=== PATIENT | male | born 1950 | race Caucasian/White ===

== ENCOUNTER 2018-02-05 17:14 | Inpatient (IN) | payer MEDICARE, OTHER ==
[~2018-02-05] VITALS: Ht 172.7 cm; Wt 70.3 kg
[2018-02-05] MEDS ORDERED: ACETAMINOPHEN 325 MG TABLET PO PRN (23:15)
[2018-02-05] MEDS ORDERED: DOCUSATE SODIUM 283 MG/5 ML MINI-ENEMA PR PRN (23:15)
[2018-02-05 23:30] VITALS: BP 140/78
[2018-02-06] MEDS ORDERED: ENOXAPARIN SODIUM 80 MG/0.8 ML PF SYRINGE SQ ONE
[2018-02-06] MEDS ORDERED: *CLINICAL-WARFARIN SODIUM DOSING CLINICAL ONE
[2018-02-06 01:12] LABS: APPEARANCE,URINE CLEAR (CLEAR); BILIRUBIN,URINE NEGATIVE (NEGATIVE); GLUCOSE, URINE (UA) NEGATIVE (NEGATIVE); KETONES,URINE NEGATIVE (NEGATIVE); LEUKOCYTE ESTERASE ,URINE NEGATIVE (NEGATIVE); NITRATE,URINE NEGATIVE (NEGATIVE); OCCULT BLOOD,URINE NEGATIVE (NEGATIVE); PH,URINE 5.5 (5.0-8.0); PROTEIN,URINE NEGATIVE (NEGATIVE); UROBILINOGEN,URINE 0.2 mg/dL (<=1.0)
[2018-02-06] MEDS ORDERED: SPIR25 PO (03:11)
[2018-02-06] MEDS ORDERED: LISI-661 PO (03:11)
[2018-02-06] MEDS ORDERED: ASPI81 PO (03:11)
[2018-02-06] MEDS ORDERED: CARV6 PO (03:11)
[2018-02-06] MEDS ORDERED: ATOR10TA84 PO (03:11)
[2018-02-06 06:48] LABS: BASOPHILS % (AUTO) 0.7 % (0.0-2.0); EOSINOPHILS % (AUTO) 15.6 % (1.0-6.0); HEMATOCRIT 35.4 % (41-53); HEMOGLOBIN 12.3 g/dL (13.5-17.5); LYMPHOCYTES # (AUTO) 1.4 K/uL (1.0-4.8); LYMPHOCYTES % (AUTO) 18.2 % (22.0-44.0); MEAN CORPUSCULAR HEMOGLOBIN 31.5 pg (26.0-34.0); MEAN CORPUSCULAR HGB CONC 34.7 G/dL (31.0-37.0); MEAN CORPUSCULAR VOLUME 91 fL (80-100); MONOCYTES # (AUTO) 0.5 K/uL (0.1-1.0); MONOCYTES % (AUTO) 6.6 % (2.0-9.0); NEUTROPHILS # (AUTO) 4.5 K/uL (1.8-7.7); NEUTROPHILS % (AUTO) 58.9 % (40.0-70.0); PLATELET COUNT (AUTO) 218 K/uL (150-450); RED BLOOD CELL COUNT(AUTO) 3.89 MIL/uL (4.50-5.90); RED CELL DISTRIBUTION WIDTH 14.1 % (11.5-14.5)
[2018-02-06 07:01] LABS: BILIRUBIN,TOTAL 0.4 mg/dL (0.1-1.0); CALCIUM, TOTAL 8.9 mg/dL (8.8-10.5); CREATININE 1.22 mg/dL (0.60-1.30); POTASSIUM 3.6 mmol/L (3.5-5.1); TOTAL PROTEIN, SERUM 6.7 g/dL (6.4-8.2)
[2018-02-06 07:05] VITALS: BP 122/72
[2018-02-06] MEDS: ENOXAPARIN SODIUM 80 MG/0.8 ML PF SYRINGE SQ SCH ×2 (08:49→20:56)
[2018-02-06] MEDS: PANTOPRAZOLE SODIUM 40 MG DR TABLET PO SCH (08:49)
[2018-02-06] MEDS: CARVEDILOL 12.5 MG TABLET PO SCH ×2 (08:49→17:43)
[2018-02-06] MEDS: ATORVASTATIN CALCIUM 40 MG TABLET PO SCH (08:49)
[2018-02-06] MEDS: LISINOPRIL 10 MG TABLET PO SCH (08:49)
[2018-02-06] MEDS: ASPIRIN 81 MG CHEWABLE TABLET PO SCH (08:49)
[2018-02-06 15:00] VITALS: BP 100/60
[2018-02-06] MEDS ORDERED: WARFARIN SODIUM 5 MG TABLET PO SCH (17:00)
[2018-02-06 17:43] VITALS: BP 115/68
[2018-02-06] MEDS: WARFARIN SODIUM 5 MG TABLET PO SCH (17:43)
[2018-02-06] MEDS: DOCUSATE SODIUM 100 MG CAPSULE PO SCH (20:56)
[2018-02-06] MEDS: SENNA 187 MG TABLET PO SCH (20:56)
[2018-02-07] VITALS (7 sets, daily range): BP systolic 100–150; BP diastolic 56–76
[2018-02-07] MEDS: MAGNESIUM HYDROXIDE SUSPENSION 30 ML UDCUP PO PRN ×2 (06:41→21:10)
[2018-02-07 08:54] LABS: PROTHROMBIN TIME 10.6 SEC (9.4-11.6)
[2018-02-07] MEDS: LISINOPRIL 10 MG TABLET PO SCH (09:00)
[2018-02-07] MEDS: PANTOPRAZOLE SODIUM 40 MG DR TABLET PO SCH (09:12)
[2018-02-07] MEDS: ATORVASTATIN CALCIUM 40 MG TABLET PO SCH (09:12)
[2018-02-07] MEDS: CARVEDILOL 12.5 MG TABLET PO SCH ×2 (09:12→16:58)
[2018-02-07] MEDS: DOCUSATE SODIUM 100 MG CAPSULE PO SCH (09:12)
[2018-02-07] MEDS: ASPIRIN 81 MG CHEWABLE TABLET PO SCH (09:12)
[2018-02-07] MEDS: ENOXAPARIN SODIUM 80 MG/0.8 ML PF SYRINGE SQ SCH ×2 (09:35→20:37)
[2018-02-07] MEDS ORDERED: MAGNESIUM CITRATE 300 ML ORAL SOLUTION PO ONE (16:00)
[2018-02-07] MEDS: WARFARIN SODIUM 5 MG TABLET PO SCH (16:58)
[2018-02-07] MEDS: DOCUSATE SODIUM 250 MG CAPSULE PO SCH (20:35)
[2018-02-07] MEDS: SENNA 187 MG TABLET PO SCH (20:35)
[2018-02-08 03:46] VITALS: BP 106/57
[2018-02-08 07:12] VITALS: BP 129/72
[2018-02-08 07:37] LABS: INR 1.2 (0.9-1.1); PROTHROMBIN TIME 12.3 SEC (9.4-11.6)
[2018-02-08] MEDS: LISINOPRIL 10 MG TABLET PO SCH (08:53)
[2018-02-08] MEDS: PANTOPRAZOLE SODIUM 40 MG DR TABLET PO SCH (08:53)
[2018-02-08] MEDS: ATORVASTATIN CALCIUM 40 MG TABLET PO SCH (08:53)
[2018-02-08] MEDS: CARVEDILOL 12.5 MG TABLET PO SCH ×2 (08:53→17:28)
[2018-02-08] MEDS: ASPIRIN 81 MG CHEWABLE TABLET PO SCH (08:53)
[2018-02-08] MEDS: POLYETHYLENE GLYCOL 3350 17 GM PACKET PO SCH (09:00)
[2018-02-08] MEDS: DOCUSATE SODIUM 250 MG CAPSULE PO SCH ×2 (09:00→20:19)
[2018-02-08] MEDS: ENOXAPARIN SODIUM 80 MG/0.8 ML PF SYRINGE SQ SCH ×2 (10:00→20:20)
[2018-02-08] MEDS ORDERED: WARFARIN SODIUM 3 MG TABLET PO ONE (17:00)
[2018-02-08 17:31] LABS: BASOPHILS % (AUTO) 1.2 % (0.0-2.0); EOSINOPHILS % (AUTO) 16.2 % (1.0-6.0); HEMATOCRIT 38.7 % (41-53); LYMPHOCYTES # (AUTO) 1.5 K/uL (1.0-4.8); MEAN CORPUSCULAR HEMOGLOBIN 31.2 pg (26.0-34.0); MEAN CORPUSCULAR HGB CONC 33.6 G/dL (31.0-37.0); MEAN CORPUSCULAR VOLUME 93 fL (80-100); MONOCYTES # (AUTO) 0.4 K/uL (0.1-1.0); MONOCYTES % (AUTO) 5.8 % (2.0-9.0); NEUTROPHILS # (AUTO) 4.2 K/uL (1.8-7.7); NEUTROPHILS % (AUTO) 56.8 % (40.0-70.0); PLATELET COUNT (AUTO) 284 K/uL (150-450); RED BLOOD CELL COUNT(AUTO) 4.17 MIL/uL (4.50-5.90); RED CELL DISTRIBUTION WIDTH 13.5 % (11.5-14.5)
[2018-02-08 17:46] LABS: PLATELET MORPHOLOGY COMMENT GIANT PLTS PRESENT
[2018-02-08 17:50] VITALS: BP 112/61
[2018-02-08 19:05] LABS: APPEARANCE,URINE CLOUDY (CLEAR); BILIRUBIN,URINE NEGATIVE (NEGATIVE); GLUCOSE, URINE (UA) NEGATIVE (NEGATIVE); KETONES,URINE TRACE mg/dL (NEGATIVE); LEUKOCYTE ESTERASE ,URINE SMALL (NEGATIVE); NITRATE,URINE NEGATIVE (NEGATIVE); OCCULT BLOOD,URINE LARGE (NEGATIVE); PROTEIN,URINE SEE CONFIRM (NEGATIVE); UROBILINOGEN,URINE 0.2 mg/dL (<=1.0)
[2018-02-08 19:15] LABS: BACTERIA,URINE Rare /HPF (None Seen); RBC,URINE 51-100 /HPF (0-2); SQUAMOUS EPITHELIAL CELL,UR Few /LPF (None Seen); SULFOSALICYLIC ACID,URINE 3+ (Negative)
[2018-02-08] MEDS: SENNA 187 MG TABLET PO SCH (20:19)
[2018-02-09] VITALS: BP 97/53
[2018-02-09 06:39] LABS: INR 1.2 (0.9-1.1); PROTHROMBIN TIME 12.4 SEC (9.4-11.6)
[2018-02-09 06:44] VITALS: BP 96/60
[2018-02-09 07:20] VITALS: BP 106/68
[2018-02-09] MEDS ORDERED: WARFARIN SODIUM-INR 2.0-3.0-RX DOSING PER PROTOCOL PO PRN (08:30)
[2018-02-09] MEDS: *CLINICAL-WARFARIN SODIUM DOSING CLINICAL SCH (09:00)
[2018-02-09] MEDS ORDERED: ENOXAPARIN SODIUM 80 MG/0.8 ML PF SYRINGE SQ SCH (09:00)
[2018-02-09] MEDS: DOCUSATE SODIUM 250 MG CAPSULE PO SCH ×2 (09:05→20:36)
[2018-02-09] MEDS: POLYETHYLENE GLYCOL 3350 17 GM PACKET PO SCH (09:05)
[2018-02-09] MEDS: PANTOPRAZOLE SODIUM 40 MG DR TABLET PO SCH (09:06)
[2018-02-09] MEDS: ATORVASTATIN CALCIUM 40 MG TABLET PO SCH (09:06)
[2018-02-09] MEDS: ENOXAPARIN SODIUM 80 MG/0.8 ML PF SYRINGE SQ SCH ×2 (09:06→20:36)
[2018-02-09] MEDS: CARVEDILOL 12.5 MG TABLET PO SCH ×2 (09:06→17:19)
[2018-02-09] MEDS: LISINOPRIL 10 MG TABLET PO SCH (09:07)
[2018-02-09 15:09] VITALS: BP 121/70
[2018-02-09] MEDS ORDERED: WARFARIN SODIUM 5 MG TABLET PO SCH (17:00)
[2018-02-09 17:14] VITALS: BP 103/67
[2018-02-09] MEDS: SENNA 187 MG TABLET PO SCH (20:36)
[2018-02-10] VITALS: BP 113/64
[2018-02-10 06:44] LABS: EOSINOPHILS % (AUTO) 14.7 % (1.0-6.0); HEMATOCRIT 35.5 % (41-53); HEMOGLOBIN 12.3 g/dL (13.5-17.5); LYMPHOCYTES # (AUTO) 1.2 K/uL (1.0-4.8); LYMPHOCYTES % (AUTO) 19.4 % (22.0-44.0); MEAN CORPUSCULAR HEMOGLOBIN 31.9 pg (26.0-34.0); MEAN CORPUSCULAR HGB CONC 34.7 G/dL (31.0-37.0); MEAN CORPUSCULAR VOLUME 92 fL (80-100); MONOCYTES # (AUTO) 0.4 K/uL (0.1-1.0); MONOCYTES % (AUTO) 5.8 % (2.0-9.0); NEUTROPHILS # (AUTO) 3.8 K/uL (1.8-7.7); NEUTROPHILS % (AUTO) 59.1 % (40.0-70.0); PLATELET COUNT (AUTO) 261 K/uL (150-450); RED BLOOD CELL COUNT(AUTO) 3.85 MIL/uL (4.50-5.90); RED CELL DISTRIBUTION WIDTH 13.9 % (11.5-14.5)
[2018-02-10 06:53] LABS: INR 1.2 (0.9-1.1); PROTHROMBIN TIME 12.7 SEC (9.4-11.6)
[2018-02-10] MEDS: DOCUSATE SODIUM 250 MG CAPSULE PO SCH ×2 (07:58→20:16)
[2018-02-10] MEDS: ATORVASTATIN CALCIUM 40 MG TABLET PO SCH (07:58)
[2018-02-10] MEDS: POLYETHYLENE GLYCOL 3350 17 GM PACKET PO SCH (07:58)
[2018-02-10] MEDS: PANTOPRAZOLE SODIUM 40 MG DR TABLET PO SCH (07:58)
[2018-02-10] MEDS: CARVEDILOL 12.5 MG TABLET PO SCH ×2 (07:58→17:12)
[2018-02-10] MEDS: ENOXAPARIN SODIUM 80 MG/0.8 ML PF SYRINGE SQ SCH ×2 (07:59→20:17)
[2018-02-10] MEDS: LISINOPRIL 10 MG TABLET PO SCH (07:59)
[2018-02-10 08:50] VITALS: BP 101/65
[2018-02-10] MEDS: *CLINICAL-WARFARIN SODIUM DOSING CLINICAL SCH (09:00)
[2018-02-10 15:34] VITALS: BP 109/66
[2018-02-10 15:40] LABS: CALCIUM, TOTAL 8.7 mg/dL (8.8-10.5); CREATININE 1.38 mg/dL (0.60-1.30); POTASSIUM 4.9 mmol/L (3.5-5.1)
[2018-02-10] MEDS ORDERED: SODIUM CHLORIDE 0.9% 100 ML ONE (16:55)
[2018-02-10] MEDS ORDERED: IOVERSOL 350 MG/ML 100 ML VIAL ONE (16:55)
[2018-02-10] MEDS ORDERED: WARFARIN SODIUM 2 MG TABLET PO ONE (17:00)
[2018-02-10] MEDS: SENNA 187 MG TABLET PO SCH (20:16)
[2018-02-11 00:02] VITALS: BP 97/57
[2018-02-11 06:59] LABS: INR 1.4 (0.9-1.1)
[2018-02-11 07:01] LABS: BASOPHILS % (AUTO) 1.1 % (0.0-2.0); EOSINOPHILS % (AUTO) 13.6 % (1.0-6.0); HEMATOCRIT 35.5 % (41-53); HEMOGLOBIN 12.3 g/dL (13.5-17.5); LYMPHOCYTES # (AUTO) 1.3 K/uL (1.0-4.8); LYMPHOCYTES % (AUTO) 17.3 % (22.0-44.0); MEAN CORPUSCULAR HEMOGLOBIN 31.5 pg (26.0-34.0); MEAN CORPUSCULAR HGB CONC 34.7 G/dL (31.0-37.0); MEAN CORPUSCULAR VOLUME 91 fL (80-100); MONOCYTES # (AUTO) 0.4 K/uL (0.1-1.0); MONOCYTES % (AUTO) 4.9 % (2.0-9.0); NEUTROPHILS # (AUTO) 4.6 K/uL (1.8-7.7); NEUTROPHILS % (AUTO) 63.1 % (40.0-70.0); PLATELET COUNT (AUTO) 278 K/uL (150-450); RED BLOOD CELL COUNT(AUTO) 3.91 MIL/uL (4.50-5.90); RED CELL DISTRIBUTION WIDTH 13.8 % (11.5-14.5)
[2018-02-11 07:08] LABS: ALBUMIN 3.1 g/dL (3.4-5.0); BILIRUBIN,TOTAL 0.2 mg/dL (0.1-1.0); CALCIUM, TOTAL 8.5 mg/dL (8.8-10.5); CREATININE 1.36 mg/dL (0.60-1.30); MAGNESIUM 2.5 mg/dL (1.80-2.40); POTASSIUM 4.6 mmol/L (3.5-5.1); TOTAL PROTEIN, SERUM 6.8 g/dL (6.4-8.2)
[2018-02-11 07:30] VITALS: BP 96/65
[2018-02-11] MEDS: CARVEDILOL 12.5 MG TABLET PO SCH ×2 (07:30→16:18)
[2018-02-11] MEDS: DOCUSATE SODIUM 250 MG CAPSULE PO SCH ×2 (08:35→20:20)
[2018-02-11] MEDS: ATORVASTATIN CALCIUM 40 MG TABLET PO SCH (08:35)
[2018-02-11] MEDS: POLYETHYLENE GLYCOL 3350 17 GM PACKET PO SCH (08:35)
[2018-02-11] MEDS: ENOXAPARIN SODIUM 80 MG/0.8 ML PF SYRINGE SQ SCH ×2 (08:36→20:20)
[2018-02-11] MEDS: PANTOPRAZOLE SODIUM 40 MG DR TABLET PO SCH (08:36)
[2018-02-11] MEDS: LISINOPRIL 10 MG TABLET PO SCH (08:37)
[2018-02-11 15:50] VITALS: BP 107/66
[2018-02-11] MEDS: 0.9% SODIUM CHLORIDE 10 ML SYRINGE IVP SCH (16:17)
[2018-02-11] MEDS ORDERED: WARFARIN SODIUM 7.5 MG TABLET PO ONE (17:00)
[2018-02-11] MEDS: MAGNESIUM HYDROXIDE SUSPENSION 30 ML UDCUP PO PRN (20:20)
[2018-02-11] MEDS: SENNA 187 MG TABLET PO SCH (20:20)
[2018-02-12] MEDS: 0.9% SODIUM CHLORIDE 10 ML SYRINGE IVP SCH ×3 (00:08→16:46)
[2018-02-12 00:23] VITALS: BP 100/58
[2018-02-12 06:17] LABS: EOSINOPHILS % (AUTO) 13.2 % (1.0-6.0); HEMATOCRIT 35.9 % (41-53); HEMOGLOBIN 12.3 g/dL (13.5-17.5); LYMPHOCYTES # (AUTO) 1.2 K/uL (1.0-4.8); LYMPHOCYTES % (AUTO) 15.9 % (22.0-44.0); MEAN CORPUSCULAR HEMOGLOBIN 31.4 pg (26.0-34.0); MEAN CORPUSCULAR HGB CONC 34.3 G/dL (31.0-37.0); MEAN CORPUSCULAR VOLUME 92 fL (80-100); MONOCYTES # (AUTO) 0.6 K/uL (0.1-1.0); MONOCYTES % (AUTO) 7.2 % (2.0-9.0); NEUTROPHILS # (AUTO) 4.9 K/uL (1.8-7.7); NEUTROPHILS % (AUTO) 62.7 % (40.0-70.0); PLATELET COUNT (AUTO) 298 K/uL (150-450); RED BLOOD CELL COUNT(AUTO) 3.92 MIL/uL (4.50-5.90); RED CELL DISTRIBUTION WIDTH 13.7 % (11.5-14.5)
[2018-02-12 06:33] LABS: INR 1.8 (0.9-1.1); PROTHROMBIN TIME 18.4 SEC (9.4-11.6)
[2018-02-12 06:37] LABS: ALBUMIN 3.2 g/dL (3.4-5.0); BILIRUBIN,TOTAL 0.2 mg/dL (0.1-1.0); CALCIUM, TOTAL 8.7 mg/dL (8.8-10.5); CREATININE 1.5 mg/dL (0.60-1.30); MAGNESIUM 2.8 mg/dL (1.80-2.40); POTASSIUM 4.3 mmol/L (3.5-5.1)
[2018-02-12 07:36] VITALS: BP 107/61
[2018-02-12] MEDS: LISINOPRIL 10 MG TABLET PO SCH (09:00)
[2018-02-12] MEDS: ATORVASTATIN CALCIUM 40 MG TABLET PO SCH (09:06)
[2018-02-12] MEDS: DOCUSATE SODIUM 250 MG CAPSULE PO SCH ×2 (09:06→20:33)
[2018-02-12] MEDS: PANTOPRAZOLE SODIUM 40 MG DR TABLET PO SCH (09:06)
[2018-02-12] MEDS: CARVEDILOL 12.5 MG TABLET PO SCH ×2 (09:06→17:48)
[2018-02-12] MEDS: POLYETHYLENE GLYCOL 3350 17 GM PACKET PO SCH (09:07)
[2018-02-12 15:37] VITALS: BP 112/70
[2018-02-12 17:21] VITALS: BP 100/64
[2018-02-12 17:45] VITALS: BP 114/71
[2018-02-12] MEDS: WARFARIN SODIUM 3 MG TABLET PO SCH (17:48)
[2018-02-12] MEDS: SENNA 187 MG TABLET PO SCH (20:33)
[2018-02-13] MEDS: 0.9% SODIUM CHLORIDE 10 ML SYRINGE IVP SCH ×3 (02:09→16:00)
[2018-02-13 02:24] VITALS: BP 106/60
[2018-02-13 06:45] LABS: BASOPHILS % (AUTO) 0.8 % (0.0-2.0); EOSINOPHILS % (AUTO) 12.6 % (1.0-6.0); HEMATOCRIT 34.1 % (41-53); HEMOGLOBIN 11.6 g/dL (13.5-17.5); LYMPHOCYTES # (AUTO) 1.2 K/uL (1.0-4.8); LYMPHOCYTES % (AUTO) 16.9 % (22.0-44.0); MEAN CORPUSCULAR HEMOGLOBIN 31.2 pg (26.0-34.0); MEAN CORPUSCULAR VOLUME 92 fL (80-100); MONOCYTES # (AUTO) 0.5 K/uL (0.1-1.0); MONOCYTES % (AUTO) 6.6 % (2.0-9.0); NEUTROPHILS # (AUTO) 4.5 K/uL (1.8-7.7); NEUTROPHILS % (AUTO) 63.1 % (40.0-70.0); PLATELET COUNT (AUTO) 295 K/uL (150-450); RED BLOOD CELL COUNT(AUTO) 3.73 MIL/uL (4.50-5.90); RED CELL DISTRIBUTION WIDTH 13.8 % (11.5-14.5)
[2018-02-13 06:54] LABS: INR 1.9 (0.9-1.1); PROTHROMBIN TIME 19.3 SEC (9.4-11.6)
[2018-02-13 06:58] LABS: ALBUMIN 3.2 g/dL (3.4-5.0); BILIRUBIN,TOTAL 0.2 mg/dL (0.1-1.0); CALCIUM, TOTAL 8.4 mg/dL (8.8-10.5); CREATININE 1.37 mg/dL (0.60-1.30); MAGNESIUM 2.5 mg/dL (1.80-2.40); POTASSIUM 4.4 mmol/L (3.5-5.1); TOTAL PROTEIN, SERUM 6.8 g/dL (6.4-8.2)
[2018-02-13 07:30] VITALS: BP 99/58
[2018-02-13] MEDS: CARVEDILOL 12.5 MG TABLET PO SCH ×2 (07:30→16:37)
[2018-02-13] MEDS: ATORVASTATIN CALCIUM 40 MG TABLET PO SCH (08:17)
[2018-02-13] MEDS: DOCUSATE SODIUM 250 MG CAPSULE PO SCH ×2 (08:17→20:38)
[2018-02-13] MEDS: PANTOPRAZOLE SODIUM 40 MG DR TABLET PO SCH (08:17)
[2018-02-13] MEDS: LISINOPRIL 10 MG TABLET PO SCH (08:21)
[2018-02-13] MEDS: POLYETHYLENE GLYCOL 3350 17 GM PACKET PO SCH (08:23)
[2018-02-13 15:45] VITALS: BP 97/60
[2018-02-13 16:28] VITALS: BP 104/71
[2018-02-13] MEDS: WARFARIN SODIUM 3 MG TABLET PO SCH (16:39)
[2018-02-13 20:35] VITALS: BP 102/59
[2018-02-13] MEDS: SENNA 187 MG TABLET PO SCH (20:38)
[2018-02-13 23:16] VITALS: BP 111/66
[2018-02-14 06:55] LABS: INR 2.2 (0.9-1.1); PROTHROMBIN TIME 22.5 SEC (9.4-11.6)
[2018-02-14] MEDS: MAGNESIUM HYDROXIDE SUSPENSION 30 ML UDCUP PO PRN (07:06)
[2018-02-14 07:20] VITALS: BP 108/70
[2018-02-14] MEDS: CARVEDILOL 12.5 MG TABLET PO SCH ×2 (08:17→17:05)
[2018-02-14] MEDS: ATORVASTATIN CALCIUM 40 MG TABLET PO SCH (08:17)
[2018-02-14] MEDS: PANTOPRAZOLE SODIUM 40 MG DR TABLET PO SCH (08:17)
[2018-02-14] MEDS: LISINOPRIL 10 MG TABLET PO SCH (08:18)
[2018-02-14] MEDS: DOCUSATE SODIUM 250 MG CAPSULE PO SCH ×2 (08:18→20:09)
[2018-02-14] MEDS: POLYETHYLENE GLYCOL 3350 17 GM PACKET PO SCH (08:18)
[2018-02-14 16:26] VITALS: BP 165/56
[2018-02-14 17:03] VITALS: BP 115/52
[2018-02-14] MEDS: WARFARIN SODIUM 3 MG TABLET PO SCH (17:05)
[2018-02-14] MEDS: SENNA 187 MG TABLET PO SCH (20:09)
[2018-02-15 00:13] VITALS: BP 119/67
[2018-02-15 07:26] VITALS: BP 103/67
[2018-02-15 07:43] LABS: INR 2.3 (0.9-1.1); PROTHROMBIN TIME 23.7 SEC (9.4-11.6)
[2018-02-15] MEDS: CARVEDILOL 12.5 MG TABLET PO SCH ×2 (08:09→17:00)
[2018-02-15] MEDS: DOCUSATE SODIUM 250 MG CAPSULE PO SCH ×2 (08:09→20:18)
[2018-02-15] MEDS: PANTOPRAZOLE SODIUM 40 MG DR TABLET PO SCH (08:09)
[2018-02-15] MEDS: ATORVASTATIN CALCIUM 40 MG TABLET PO SCH (08:09)
[2018-02-15] MEDS: LISINOPRIL 10 MG TABLET PO SCH (08:10)
[2018-02-15] MEDS: POLYETHYLENE GLYCOL 3350 17 GM PACKET PO SCH (08:10)
[2018-02-15 16:23] VITALS: BP 103/64
[2018-02-15 17:01] VITALS: BP 98/55
[2018-02-15] MEDS: WARFARIN SODIUM 3 MG TABLET PO SCH (17:04)
[2018-02-15] MEDS: SENNA 187 MG TABLET PO SCH (20:18)
[2018-02-15 20:20] VITALS: BP 97/59
[2018-02-16 02:25] VITALS: BP 98/61
[2018-02-16 06:14] LABS: INR 2.6 (0.9-1.1); PROTHROMBIN TIME 26.1 SEC (9.4-11.6)
[2018-02-16 07:15] VITALS: BP 130/65
[2018-02-16] MEDS: DOCUSATE SODIUM 250 MG CAPSULE PO SCH ×2 (08:10→21:26)
[2018-02-16] MEDS: ATORVASTATIN CALCIUM 40 MG TABLET PO SCH (08:10)
[2018-02-16] MEDS: PANTOPRAZOLE SODIUM 40 MG DR TABLET PO SCH (08:11)
[2018-02-16] MEDS: POLYETHYLENE GLYCOL 3350 17 GM PACKET PO SCH ×2 (08:11→21:00)
[2018-02-16] MEDS: LISINOPRIL 10 MG TABLET PO SCH (08:11)
[2018-02-16] MEDS: CARVEDILOL 12.5 MG TABLET PO SCH ×2 (08:11→17:00)
[2018-02-16 15:00] VITALS: BP 81/53
[2018-02-16 15:30] VITALS: BP 106/59
[2018-02-16] MEDS: WARFARIN SODIUM 3 MG TABLET PO SCH (17:00)
[2018-02-16 17:49] VITALS: BP 113/69
[2018-02-16 18:00] VITALS: BP 98/65
[2018-02-16] MEDS ORDERED: SENNA 187 MG TABLET PO SCH (21:00)
[2018-02-17 03:37] VITALS: BP 100/63
[2018-02-17 06:59] LABS: BASOPHILS % (AUTO) 0.8 % (0.0-2.0); EOSINOPHILS % (AUTO) 11.8 % (1.0-6.0); HEMATOCRIT 37.1 % (41-53); HEMOGLOBIN 12.7 g/dL (13.5-17.5); LYMPHOCYTES # (AUTO) 1.2 K/uL (1.0-4.8); LYMPHOCYTES % (AUTO) 13.9 % (22.0-44.0); MEAN CORPUSCULAR HEMOGLOBIN 31.7 pg (26.0-34.0); MEAN CORPUSCULAR HGB CONC 34.1 G/dL (31.0-37.0); MEAN CORPUSCULAR VOLUME 93 fL (80-100); MONOCYTES # (AUTO) 0.4 K/uL (0.1-1.0); MONOCYTES % (AUTO) 4.7 % (2.0-9.0); NEUTROPHILS # (AUTO) 5.8 K/uL (1.8-7.7); NEUTROPHILS % (AUTO) 68.8 % (40.0-70.0); PLATELET COUNT (AUTO) 335 K/uL (150-450); RED CELL DISTRIBUTION WIDTH 13.6 % (11.5-14.5)
[2018-02-17 07:17] LABS: ALBUMIN 3.4 g/dL (3.4-5.0); BILIRUBIN,TOTAL 0.3 mg/dL (0.1-1.0); CALCIUM, TOTAL 8.8 mg/dL (8.8-10.5); CREATININE 1.51 mg/dL (0.60-1.30); MAGNESIUM 2.5 mg/dL (1.80-2.40); POTASSIUM 4.5 mmol/L (3.5-5.1); TOTAL PROTEIN, SERUM 7.3 g/dL (6.4-8.2)
[2018-02-17 07:30] VITALS: BP 90/62
[2018-02-17 09:13] VITALS: BP 108/75
[2018-02-17] MEDS: POLYETHYLENE GLYCOL 3350 17 GM PACKET PO SCH ×2 (09:14→20:13)
[2018-02-17] MEDS: PANTOPRAZOLE SODIUM 40 MG DR TABLET PO SCH (09:15)
[2018-02-17] MEDS: DOCUSATE SODIUM 250 MG CAPSULE PO SCH ×2 (09:15→20:13)
[2018-02-17] MEDS: ATORVASTATIN CALCIUM 40 MG TABLET PO SCH (09:15)
[2018-02-17] MEDS: LISINOPRIL 5 MG TABLET PO SCH (09:17)
[2018-02-17] MEDS ORDERED: SODIUM CHLORIDE 0.9% 1,000 ML IV ONE ×2 (12:22→13:30)
[2018-02-17 13:10] VITALS: BP 113/60
[2018-02-17] MEDS ORDERED: WATER FOR IRRIGATION,STERILE 3,000 ML IRRIG ONE (14:14)
[2018-02-17 16:47] VITALS: BP 121/67
[2018-02-17] MEDS: CARVEDILOL 6.25 MG TABLET PO SCH (17:00)
[2018-02-17] MEDS: 0.9% SODIUM CHLORIDE 10 ML SYRINGE IVP SCH (17:08)
[2018-02-17 17:21] VITALS: BP 93/51
[2018-02-17] MEDS: WARFARIN SODIUM 3 MG TABLET PO SCH (17:22)
[2018-02-18] MEDS: 0.9% SODIUM CHLORIDE 10 ML SYRINGE IVP SCH ×3 (00:23→16:39)
[2018-02-18 02:00] VITALS: BP 102/56
[2018-02-18] MEDS ORDERED: FentaNYL CITRATE-PF 100 MCG/2 ML VIAL IVP ONE (05:54)
[2018-02-18] MEDS ORDERED: PROPOFOL 1% 20 ML VIAL IVP ONE (05:54)
[2018-02-18] MEDS ORDERED: MIDAZOLAM HCL 2 MG/2 ML VIAL IVP ONE (05:54)
[2018-02-18 06:48] LABS: BASOPHILS % (AUTO) 0.7 % (0.0-2.0); EOSINOPHILS % (AUTO) 8.2 % (1.0-6.0); HEMATOCRIT 35.4 % (41-53); HEMOGLOBIN 12.1 g/dL (13.5-17.5); LYMPHOCYTES # (AUTO) 1.3 K/uL (1.0-4.8); LYMPHOCYTES % (AUTO) 13.6 % (22.0-44.0); MEAN CORPUSCULAR HEMOGLOBIN 31.1 pg (26.0-34.0); MEAN CORPUSCULAR HGB CONC 34.2 G/dL (31.0-37.0); MEAN CORPUSCULAR VOLUME 91 fL (80-100); MONOCYTES # (AUTO) 0.5 K/uL (0.1-1.0); MONOCYTES % (AUTO) 4.8 % (2.0-9.0); NEUTROPHILS # (AUTO) 6.9 K/uL (1.8-7.7); NEUTROPHILS % (AUTO) 72.7 % (40.0-70.0); PLATELET COUNT (AUTO) 319 K/uL (150-450); RED BLOOD CELL COUNT(AUTO) 3.89 MIL/uL (4.50-5.90); RED CELL DISTRIBUTION WIDTH 13.6 % (11.5-14.5)
[2018-02-18 06:58] LABS: INR 1.6 (0.9-1.1)
[2018-02-18 07:02] LABS: ALBUMIN 3.2 g/dL (3.4-5.0); BILIRUBIN,TOTAL 0.3 mg/dL (0.1-1.0); CALCIUM, TOTAL 8.4 mg/dL (8.8-10.5); CREATININE 1.26 mg/dL (0.60-1.30); MAGNESIUM 2.2 mg/dL (1.80-2.40); POTASSIUM 4.5 mmol/L (3.5-5.1); TOTAL PROTEIN, SERUM 6.8 g/dL (6.4-8.2)
[2018-02-18 07:10] VITALS: BP 103/42
[2018-02-18] MEDS: ATORVASTATIN CALCIUM 40 MG TABLET PO SCH (08:24)
[2018-02-18] MEDS: PANTOPRAZOLE SODIUM 40 MG DR TABLET PO SCH (08:24)
[2018-02-18] MEDS: CARVEDILOL 6.25 MG TABLET PO SCH ×2 (08:24→16:39)
[2018-02-18] MEDS: LISINOPRIL 5 MG TABLET PO SCH (08:24)
[2018-02-18] MEDS: DOCUSATE SODIUM 250 MG CAPSULE PO SCH ×2 (08:25→20:28)
[2018-02-18] MEDS: POLYETHYLENE GLYCOL 3350 17 GM PACKET PO SCH ×2 (08:25→20:28)
[2018-02-18] MEDS ORDERED: LISINOPRIL 10 MG TABLET PO SCH (09:00)
[2018-02-18] MEDS ORDERED: SPIRONOLACTONE 25 MG TABLET PO SCH (09:00)
[2018-02-18] MEDS ORDERED: ATORVASTATIN CALCIUM 10 MG TABLET PO SCH (09:00)
[2018-02-18] MEDS ORDERED: ASPIRIN 81 MG CHEWABLE TABLET PO SCH (09:00)
[2018-02-18] MEDS ORDERED: CARVEDILOL 6.25 MG TABLET PO SCH (09:00)
[2018-02-18 15:35] VITALS: BP 103/61
[2018-02-18 16:36] VITALS: BP 95/59
[2018-02-18] MEDS: WARFARIN SODIUM 3 MG TABLET PO SCH (16:39)
[2018-02-18] MEDS ORDERED: WARFARIN SODIUM 2 MG TABLET PO ONE (17:00)
[2018-02-19] MEDS: 0.9% SODIUM CHLORIDE 10 ML SYRINGE IVP SCH ×3 (01:44→16:36)
[2018-02-19 01:52] VITALS: BP 95/53
[2018-02-19 07:00] VITALS: BP 100/55
[2018-02-19 07:05] LABS: INR 1.6 (0.9-1.1); PROTHROMBIN TIME 16.7 SEC (9.4-11.6)
[2018-02-19] MEDS: CARVEDILOL 6.25 MG TABLET PO SCH ×2 (08:30→16:37)
[2018-02-19] MEDS: ATORVASTATIN CALCIUM 40 MG TABLET PO SCH (08:30)
[2018-02-19] MEDS: PANTOPRAZOLE SODIUM 40 MG DR TABLET PO SCH (08:30)
[2018-02-19] MEDS: LISINOPRIL 5 MG TABLET PO SCH (08:31)
[2018-02-19] MEDS: POLYETHYLENE GLYCOL 3350 17 GM PACKET PO SCH ×2 (08:31→21:00)
[2018-02-19] MEDS: DOCUSATE SODIUM 250 MG CAPSULE PO SCH ×2 (08:31→21:00)
[2018-02-19] MEDS: CLOPIDOGREL BISULFATE 75 MG TABLET PO SCH (10:04)
[2018-02-19 15:00] VITALS: BP 123/63
[2018-02-19] MEDS ORDERED: WARFARIN SODIUM 2 MG TABLET PO ONE (17:00)
[2018-02-20] VITALS: BP 137/56
[2018-02-20] MEDS: 0.9% SODIUM CHLORIDE 10 ML SYRINGE IVP SCH ×2 (00:12→11:16)
[2018-02-20 07:10] LABS: EOSINOPHILS % (AUTO) 7.7 % (1.0-6.0); HEMATOCRIT 35.2 % (41-53); HEMOGLOBIN 11.9 g/dL (13.5-17.5); LYMPHOCYTES # (AUTO) 1.1 K/uL (1.0-4.8); MEAN CORPUSCULAR HEMOGLOBIN 31.4 pg (26.0-34.0); MEAN CORPUSCULAR HGB CONC 33.8 G/dL (31.0-37.0); MEAN CORPUSCULAR VOLUME 93 fL (80-100); MONOCYTES # (AUTO) 0.4 K/uL (0.1-1.0); MONOCYTES % (AUTO) 5.1 % (2.0-9.0); NEUTROPHILS # (AUTO) 6.4 K/uL (1.8-7.7); NEUTROPHILS % (AUTO) 73.2 % (40.0-70.0); PLATELET COUNT (AUTO) 317 K/uL (150-450); RED BLOOD CELL COUNT(AUTO) 3.79 MIL/uL (4.50-5.90); RED CELL DISTRIBUTION WIDTH 13.7 % (11.5-14.5)
[2018-02-20 07:37] LABS: ALBUMIN 3.2 g/dL (3.4-5.0); BILIRUBIN,TOTAL 0.2 mg/dL (0.1-1.0); CALCIUM, TOTAL 8.6 mg/dL (8.8-10.5); CREATININE 1.34 mg/dL (0.60-1.30); MAGNESIUM 2.3 mg/dL (1.80-2.40); POTASSIUM 4.5 mmol/L (3.5-5.1); TOTAL PROTEIN, SERUM 6.9 g/dL (6.4-8.2)
[2018-02-20 08:00] VITALS: BP 105/60
[2018-02-20] MEDS: POLYETHYLENE GLYCOL 3350 17 GM PACKET PO SCH ×2 (08:16→21:00)
[2018-02-20] MEDS: LISINOPRIL 5 MG TABLET PO SCH (08:16)
[2018-02-20] MEDS: DOCUSATE SODIUM 250 MG CAPSULE PO SCH ×2 (08:17→21:00)
[2018-02-20] MEDS: PANTOPRAZOLE SODIUM 40 MG DR TABLET PO SCH (08:17)
[2018-02-20] MEDS: ATORVASTATIN CALCIUM 40 MG TABLET PO SCH (08:17)
[2018-02-20] MEDS: CARVEDILOL 6.25 MG TABLET PO SCH ×2 (08:17→17:00)
[2018-02-20] MEDS: CLOPIDOGREL BISULFATE 75 MG TABLET PO SCH (08:17)
[2018-02-20 11:53] LABS: INR 1.9 (0.9-1.1); PROTHROMBIN TIME 19.7 SEC (9.4-11.6)
[2018-02-20 15:58] VITALS: BP 108/57
[2018-02-20] MEDS: WARFARIN SODIUM 3 MG TABLET PO SCH (17:10)
[2018-02-21 01:01] VITALS: BP 95/62
[2018-02-21 06:34] LABS: INR 2.2 (0.9-1.1); PROTHROMBIN TIME 22.1 SEC (9.4-11.6)
[2018-02-21 07:00] VITALS: BP 123/73
[2018-02-21] MEDS: DOCUSATE SODIUM 250 MG CAPSULE PO SCH ×2 (09:48→20:10)
[2018-02-21] MEDS: ATORVASTATIN CALCIUM 40 MG TABLET PO SCH (09:48)
[2018-02-21] MEDS: PANTOPRAZOLE SODIUM 40 MG DR TABLET PO SCH (09:48)
[2018-02-21] MEDS: LISINOPRIL 5 MG TABLET PO SCH (09:48)
[2018-02-21] MEDS: CLOPIDOGREL BISULFATE 75 MG TABLET PO SCH (09:48)
[2018-02-21] MEDS: CARVEDILOL 6.25 MG TABLET PO SCH ×2 (09:48→17:09)
[2018-02-21] MEDS: POLYETHYLENE GLYCOL 3350 17 GM PACKET PO SCH ×2 (09:48→20:10)
[2018-02-21 15:26] VITALS: BP 101/67
[2018-02-21] MEDS: WARFARIN SODIUM 3 MG TABLET PO SCH (17:09)
[2018-02-22] VITALS: BP 104/60
[2018-02-22 07:06] LABS: INR 2.3 (0.9-1.1); PROTHROMBIN TIME 23.1 SEC (9.4-11.6)
[2018-02-22 07:37] VITALS: BP 112/63
[2018-02-22] MEDS: ATORVASTATIN CALCIUM 40 MG TABLET PO SCH (08:05)
[2018-02-22] MEDS: CLOPIDOGREL BISULFATE 75 MG TABLET PO SCH (08:05)
[2018-02-22] MEDS: LISINOPRIL 5 MG TABLET PO SCH (08:06)
[2018-02-22] MEDS: PANTOPRAZOLE SODIUM 40 MG DR TABLET PO SCH (08:06)
[2018-02-22] MEDS: CARVEDILOL 6.25 MG TABLET PO SCH ×2 (08:06→17:19)
[2018-02-22] MEDS: DOCUSATE SODIUM 250 MG CAPSULE PO SCH ×2 (08:07→20:33)
[2018-02-22] MEDS: POLYETHYLENE GLYCOL 3350 17 GM PACKET PO SCH ×2 (08:07→20:33)
[2018-02-22 15:13] VITALS: BP 100/68
[2018-02-22] MEDS: WARFARIN SODIUM 3 MG TABLET PO SCH (17:19)
[2018-02-23] MEDS ORDERED: ATOR40TA28 PO (01:28)
[2018-02-23] MEDS ORDERED: LISI-660 PO (01:28)
[2018-02-23] MEDS ORDERED: CLOP75 PO (01:28)
[2018-02-23] MEDS ORDERED: MIRALAX PO (01:32)
[2018-02-23] MEDS ORDERED: PANT40TA25 PO (01:32)
[2018-02-23] MEDS ORDERED: WARF3TAB29 PO (01:32)
[2018-02-23] MEDS ORDERED: DOCU250C91 PO (01:32)
[2018-02-23 03:09] VITALS: BP 97/65
[2018-02-23 06:37] LABS: INR 2.5 (0.9-1.1)
[2018-02-23 07:00] VITALS: BP 114/69
[2018-02-23] MEDS: POLYETHYLENE GLYCOL 3350 17 GM PACKET PO SCH (08:19)
[2018-02-23] MEDS: PANTOPRAZOLE SODIUM 40 MG DR TABLET PO SCH (08:20)
[2018-02-23] MEDS: CARVEDILOL 6.25 MG TABLET PO SCH ×2 (08:20→17:10)
[2018-02-23] MEDS: LISINOPRIL 5 MG TABLET PO SCH (08:20)
[2018-02-23] MEDS: ATORVASTATIN CALCIUM 40 MG TABLET PO SCH (08:20)
[2018-02-23] MEDS: DOCUSATE SODIUM 250 MG CAPSULE PO SCH (08:20)
[2018-02-23] MEDS: CLOPIDOGREL BISULFATE 75 MG TABLET PO SCH (08:20)
[2018-02-23 15:00] VITALS: BP 108/69
[2018-02-23] MEDS ORDERED: WARFARIN SODIUM 5 MG TABLET PO SCH (17:00)
[2018-02-24 00:45] VITALS: BP 109/60
[2018-02-24 06:37] LABS: BASOPHILS % (AUTO) 0.9 % (0.0-2.0); EOSINOPHILS % (AUTO) 5.4 % (1.0-6.0); HEMATOCRIT 37.7 % (41-53); HEMOGLOBIN 12.6 g/dL (13.5-17.5); LYMPHOCYTES # (AUTO) 1.2 K/uL (1.0-4.8); LYMPHOCYTES % (AUTO) 16.9 % (22.0-44.0); MEAN CORPUSCULAR HGB CONC 33.4 G/dL (31.0-37.0); MEAN CORPUSCULAR VOLUME 93 fL (80-100); MONOCYTES # (AUTO) 0.5 K/uL (0.1-1.0); MONOCYTES % (AUTO) 6.2 % (2.0-9.0); NEUTROPHILS # (AUTO) 5.1 K/uL (1.8-7.7); NEUTROPHILS % (AUTO) 70.6 % (40.0-70.0); PLATELET COUNT (AUTO) 325 K/uL (150-450); RED BLOOD CELL COUNT(AUTO) 4.07 MIL/uL (4.50-5.90); RED CELL DISTRIBUTION WIDTH 13.8 % (11.5-14.5)
[2018-02-24 06:47] LABS: INR 2.2 (0.9-1.1); PROTHROMBIN TIME 22.1 SEC (9.4-11.6)
[2018-02-24 07:07] LABS: ALBUMIN 3.5 g/dL (3.4-5.0); BILIRUBIN,TOTAL 0.2 mg/dL (0.1-1.0); CALCIUM, TOTAL 8.7 mg/dL (8.8-10.5); CREATININE 1.26 mg/dL (0.60-1.30); MAGNESIUM 2.3 mg/dL (1.80-2.40); POTASSIUM 4.5 mmol/L (3.5-5.1); TOTAL PROTEIN, SERUM 7.3 g/dL (6.4-8.2)
[2018-02-24] MEDS ORDERED: WARF5 PO (07:22)
[2018-02-24 07:36] VITALS: BP 108/69
[2018-02-24] MEDS: POLYETHYLENE GLYCOL 3350 17 GM PACKET PO SCH (08:03)
[2018-02-24] MEDS: CARVEDILOL 6.25 MG TABLET PO SCH (08:03)
[2018-02-24] MEDS: LISINOPRIL 5 MG TABLET PO SCH (08:03)
[2018-02-24] MEDS: CLOPIDOGREL BISULFATE 75 MG TABLET PO SCH (08:04)
[2018-02-24] MEDS: PANTOPRAZOLE SODIUM 40 MG DR TABLET PO SCH (08:04)
[2018-02-24] MEDS: ATORVASTATIN CALCIUM 40 MG TABLET PO SCH (08:08)
[2018-02-24] MEDS: DOCUSATE SODIUM 250 MG CAPSULE PO SCH (08:09)
[2018-02-24] MEDS ORDERED: WARFARIN SODIUM 3 MG TABLET PO SCH (17:00)
== END 2018-02-24 11:45 | disposition home health service (06) | DRG 65 ==
LOC: 2WR 21:58
PROC: 0TJB8ZZ Inspection of Bladder, Via Natural or Artificial Opening Endoscopic (ICD-10-PCS; principal; 2018-02-17 14:30)
DX: I63.9 Cerebral infarction, unspecified (principal); G81.94 Hemiplegia, unspecified affecting left nondominant side; N02.9 Recurrent and persistent hematuria with unspecified morphologic changes; I13.0 Hypertensive heart and chronic kidney disease with heart failure and stage 1 through stage 4 chronic kidney disease, or unspecified chronic kidney disease; I50.9 Heart failure, unspecified; N18.9 Chronic kidney disease, unspecified; I25.10 Atherosclerotic heart disease of native coronary artery without angina pectoris; F32.9 Major depressive disorder, single episode, unspecified; E78.5 Hyperlipidemia, unspecified; I25.5 Ischemic cardiomyopathy; I49.9 Cardiac arrhythmia, unspecified; I51.3 Intracardiac thrombosis, not elsewhere classified; K59.00 Constipation, unspecified; K75.9 Inflammatory liver disease, unspecified; N31.9 Neuromuscular dysfunction of bladder, unspecified; N35.919 Unspecified urethral stricture, male, unspecified site; N40.0 Benign prostatic hyperplasia without lower urinary tract symptoms; Z86.72 Personal history of thrombophlebitis; Z86.711 Personal history of pulmonary embolism; Z79.899 Other long term (current) drug therapy; Z79.82 Long term (current) use of aspirin; Z79.02 Long term (current) use of antithrombotics/antiplatelets; Z79.01 Long term (current) use of anticoagulants; Z87.891 Personal history of nicotine dependence; Z90.49 Acquired absence of other specified parts of digestive tract; Z95.1 Presence of aortocoronary bypass graft; Z95.810 Presence of automatic (implantable) cardiac defibrillator; I25.2 Old myocardial infarction; Z91.5 Personal history of self-harm; Z82.49 Family history of ischemic heart disease and other diseases of the circulatory system
CPT/HCPCS: 74178; 83735; 84153; 87081; 87086; 92523; 93005; 93306; 97110; 97112; 97116; 97150; 97162; 97166; 97530; 97535; 99366; J1650; J2250; J2704; J3010; J7030; J7050